=== PATIENT | female | born 1950 | race Caucasian/White ===

== ENCOUNTER → 2016-08-24 | Day surgery (SDC) | payer MEDICARE, BC ==
[~2016-08-24] MED LIST: BUPIVACAINE HCL PF 0.5% 30 ML VIAL ONE; DEXT 5%-NACL 0.45% 1000 ML INJ 1,000 ML IV SCH; FAMOTIDINE 20 MG/2 ML VIAL ONE; HYDR25TA5 PO; IBUP800T23 PO; IBUPROFEN 800 MG TAB ONE; LACTATED RINGER'S 1000 ML INJ 1,000 ML IV ONE; LACTATED RINGER'S 1000 ML INJ 1,000 ML ONE; LIDOCAINE HCL 2% 50 ML VIAL ONE; MIDAZOLAM HCL 2 MG/2 ML VIAL ONE; POVIDONE IODINE 10% OINT 1 PACKET TOPICAL ONE; PROPOFOL 200 MG/20 ML AMP IV ONE; SODIUM CHLORIDE 0.9% FLUSH 5 ML FLUSH IVF PRN; SODIUM CHLORIDE 0.9% FLUSH 5 ML FLUSH IVF SCH; ceFAZolin 2 GM PREMIX 50 ML ONE; fentaNYL CITRATE 250 MCG/5 ML AMP ONE
[2016-08-24 07:23] LABS: HEMATOCRIT 40.5 % (35.0-46.0); MEAN CELL VOLUME 92.4 FL (80.0-100.0); MEAN CORPUSCULAR HEMOGLOBIN 30.9 PG (27.0-34.0); MEAN CORPUSCULAR HGB CONC 33.4 % (32.0-36.0); PLATELET COUNT 298 TH/MM3 (150-450); RED BLOOD COUNT 4.39 MIL/MM3 (4.00-5.30); RED CELL DISTRIBUTION WIDTH 12.2 % (11.6-17.2); REVIEW FLAG FINAL; WHITE BLOOD COUNT 7.7 TH/MM3 (4.0-11.0)
--- NOTE | 2016-08-24 07:58 | HP.UPD ---
H&P Update Date: Aug 24, 2016 Note The Pre-Admit History and Physical Examination regarding the above named patient was reviewed (including, but not limited to, vital signs, medications, allergies, co-morbid conditions), and upon re-examination it is noted that: Indicated with "X" x - the patient's condition has not significantly changed since the last examination. [] - the patient's condition has changed since the last examination. Changes: Ewa Yap MD Aug 24, 2016 07:58
[2016-08-24 09:16] VITALS: PULSE 79
--- NOTE | 2016-08-24 09:19 | HHI.PR ---
Immediate Post Op Note Procedure Date: Aug 24, 2016 Pre Op Diagnosis: (1) Mass of right wrist Post Op Diagnosis: (1) Mass of right wrist Surgeon: Ewa Yap [employer] Education Teacher(s): None Procedure: Excision of deep mass of right wrist. Specimen(s) removed: Solid mass of wrist 3.25 cm x 2.0 cm Anesthesia: General Drains: None Tourniquet time (min at mmHg) 25 minutes at 220 mmHg Patient to: PACU Patient Condition: Good Date/Time of Procedure: SEE SURGICAL CARE RECORD Ewa Yap MD Aug 24, 2016 09:19
[2016-08-24 09:45] VITALS: PULSE 57; TEMP 98
[2016-08-24 10:25] VITALS: BP 148/85; PULSE 68; RESP 16; O2SAT 98
--- NOTE | 2016-08-24 10:25 | MP ---
cc: HECTOR REDMAN M.D. DATE OF OPERATION 08/24/2016 PREOPERATIVE DIAGNOSIS Deep mass of right wrist. POSTOPERATIVE DIAGNOSIS Deep mass of right wrist. PROCEDURE Excision of the mass of right wrist. ANESTHESIA General. SURGEON Dr. 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 FINDINGS At the completion of the procedure the mass was completely removed. It was a solid tumor. TOURNIQUET TIME 25 minutes. PROCEDURE The patient was seen preoperatively where the site and side were identified and marked. The patient was then taken to the operating room, placed in a supine position. Her identity was checked against the arm band and the consent form, site and side confirmed, time-out called prior to beginning the procedure. The right upper extremity was prepped with Hibiclens and draped in the usual sterile fashion. The area to be incised was outlined with a marking pen as a longitudinal elliptical excision along the longitudinal axis of the mass. Bupivacaine 0.5% plain was injected proximally as a field block. The arm was exsanguinated and the tourniquet inflated to 220 mmHg. A #15 blade was then used to make the incision down through the skin, down through the subcutaneous tissue. Dissection was continued down to the mass was which was then carefully from surrounding structures. Small vessels were cauterized with bipolar cautery. Using sharp and blunt dissection, the mass was carefully from surrounding structures and appeared to be completely well encapsulated. It was then removed. The wound was copiously irrigated with saline. Small vessels were cauterized with bipolar cautery and the wound was closed with interrupted 4-0 Vicryl to the deeper layers and a subcuticular 4-0 Prolene to the skin. The tourniquet was released after 25 minutes of tourniquet time. Pressure was applied after several minutes. There was no evidence of any oozing. A dressing was applied using Steri-Strips. Povidone-iodine ointment, Adaptic, Telfa, 4x4s and hand wrap. The patient was then taken from the operating room to the recovery room in satisfactory condition having tolerated the procedure well. Postoperative instructions include keeping the arm elevated, keeping the area clean and dry and returning in several days for followup. MD LISA Sheppard/OSKAR /9:23 AM /9:56 AM
--- NOTE | 2016-08-25 21:17 | EKG ---
Date Performed: 08/24/2016 Time Performed: 07:24:38 PTAGE: 66 years EKG: Sinus rhythm . Possible left anterior fascicular block Borderline ECG NO PREVIOUS TRACING DOCTOR: Tylor Blanca Interpretating Date/Time 08/25/2016 21:12:32
== END | disposition home or self-care (01) ==
LOC: PHSDC 06:08
PROVIDERS: ATTEND Specialist
DX: D36.12 Benign neoplasm of peripheral nerves and autonomic nervous system, upper limb, including shoulder (principal); I10 Essential (primary) hypertension; E78.5 Hyperlipidemia, unspecified; Z91.040 Latex allergy status; Z87.891 Personal history of nicotine dependence
CPT/HCPCS: 11404; 12032; 36415; 85027; 88307; 93005; J0690; J2250; J3010; J7120; 88305